=== PATIENT | female | born 1965 | race Caucasian/White ===

== ENCOUNTER 2016-10-28 08:20 | Emergency (ER) | payer BC ==
[2016-10-28 08:32] VITALS: BP 148/79
--- NOTE | 2016-10-28 08:50 | UC ---
Lower Extremity/Ankle HPI - HPI Summary HPI Summary: 51 y/o female presents to the urgent care c/o RT foot pain with swelling x 1 week. Pt doesn't recall any injury. She has been taking on and off ibuprofen, elevating the foot at night and soaking it on Epson salt w/o any relieve of symptoms. PT states pain is 6/10 w/ movement or walking, better at rest. Localized at the 1st toe. Pt denies fever, SOB, chest pain, MATHEWS, N/V/D. Pt has not other complains. - History of Current Complaint Chief Complaint: UCLowerExtremity Stated Complaint: FOOT INJURY Time Seen by Provider: 10/28/16 08:32 Hx Last Menstrual Period: 2 wks ago - Allergies/Home Medications Allergies/Adverse Reactions: Allergies Allergy/AdvReac Type Severity Reaction Status Date / Time Environmental Allergies Allergy Eyes Uncoded 10/28/16 08:28 Itchy/Swollen/Red/Watery PMH/Surg Hx/FS Hx/Imm Hx Previously Healthy: Yes - Surgical History Surgical History: Yes Surgery Procedure, Year, and Place: hysterectomy 2016 - Family History Known Family History: Positive: None Family History: NON CONTRIBUTORY - Social History Occupation: Employed Full-time Lives: With Family Alcohol Use: Weekly Alcohol Amount: 2 times per week Substance Use Type: None Smoking Status (MU): Light Every Day Tobacco Smoker Type: Cigarettes Amount Used/How Often: few sig/day, trying to quit Length of Time of Smoking/Using Tobacco: 30 years Review of Systems Constitutional: Negative Skin: Negative Eyes: Negative ENT: Negative Respiratory: Negative Cardiovascular: Negative Gastrointestinal: Negative Genitourinary: Negative Motor: Negative Neurovascular: Negative Musculoskeletal: Decreased ROM - RT Foot pain specially at the #1 toe Neurological: Negative Psychological: Negative All Other Systems Reviewed And Are Negative: Yes Physical Exam Triage Information Reviewed: Yes Appearance: Well-Appearing, No Pain Distress, Well-Nourished, Thin Vital Signs: Initial Vital Signs Temp 99.2 F 10/28/16 08:24 Pulse 89 10/28/16 08:24 Resp 16 10/28/16 08:24 BP 148/79 10/28/16 08:24 Pulse Ox 100 10/28/16 08:24 Vital Signs Reviewed: Yes Eye Exam: Normal Eyes: Positive: Conjunctiva Clear - PERRLA, EOMI, fundi grossly normal ENT Exam: Normal ENT: Positive: Normal ENT inspection, Hearing grossly normal, Pharynx normal, TMs normal Dental Exam: Normal Neck exam: Normal Neck: Positive: Supple, Nontender, No Lymphadenopathy Respiratory Exam: Normal Respiratory: Positive: Chest non-tender, Lungs clear, Normal breath sounds Cardiovascular Exam: Normal Cardiovascular: Positive: RRR, No Murmur, Pulses Normal, Brisk Capillary Refill Abdominal Exam: Normal Abdomen Description: Positive: Nontender, No Organomegaly, Soft. Negative: CVA Tenderness (R), CVA Tenderness (L) Bowel Sounds: Positive: Present Musculoskeletal: Positive: ROM Limited @ - RT #1 MTPJ with moderate edema, Decrease ROM due to pain. no erythema observed. Tender to palpation. Positive pulses, capillary refill and sensation intact. Neurological Exam: Normal Psychological Exam: Normal Skin Exam: Normal Lower Extremity Course/Dx - Course Course Of Treatment: 51 y/o female presents to the urgent care c/o RT foot pain with swelling x 1 week. Pt doesn't recall any injury. She has been taking on and off ibuprofen, elevating the foot at night and soaking it on Epson salt w/o any relieve of symptoms. PT states pain is 6/10 w/ movement or walking, better at rest. Localized at the 1st toe. Pt denies fever, SOB, chest pain, MATHEWS , N/V/D. HX obtained. PE abnormal findings:RT #1 MTPJ with moderate edema, Decrease ROM due to pain. no erythema observed. Tender to palpation. Positive pulses, capillary refill and sensation intact. RT Foot x-ray ordered. No Hx of gout or DM. RT foot x-ray impression: Suggestion of calcific tendinopathy involving the lateral head of the flexor hallucis brevis. Mild osteoarthritis at the First metatarsal pahalengeal joint. Pt Placed or a post -op shoe and f/ u with Ortho in 2-3 days for further evaluation and treatment. Pt Rx Ibuprofen 800mg PO and advised RICE to alleviate symptoms. Pt BP: 148/79 Pt w/o HX of HTN. Pt counceled on HTN. Advised to decrease salt intake and monitor BP and f/ u with her PCP for further evaluation and treatment. Pt understood and agreed, and left the clinic ambulating. - Differential Dx/Diagnosis Differential Diagnosis/HQI/PQRI: Contusion, Gout, Sprain, Tendonitis Provider Diagnoses: 1- Tendinopathy of first MCPJ. 2-Osteoarthritis. 3- Elevated Blood pressure w/o HX of HTN Discharge - Discharge Plan Condition: Stable Disposition: HOME Prescriptions: Ibuprofen TAB* [Motrin TAB* 800 MG] 800 mg PO Q6H #30 tab Patient Education Materials: Calcific Tendinitis (ED), Low Sodium Diet (ED) Referrals: [facility] [place] [facility]YSICIAN REFERRAL [Outside] [facility] [place]Primary Care Provider] - Theodore Esparza MD [Medical Doctor] - 2 Days Additional Instructions: PLease continue taking Ibuprofen q8-6hrs prn after meals to alleviate swelling and pain. Please f/u with the orthopedic DR Esparza in 2-3 days for further evaluation and treatment. Please decrease salt intake, monitor BP and f/u with your PCP for further evaluation and treatment on elevated blood pressure.
--- NOTE | 2016-10-28 09:07 | RAD ---
Indication: Woke up with RIGHT foot pain and swelling at the first and second metatarsals one week ago. Comparison: No relevant prior exams available on the [facility] PACS for comparison. Technique: AP, lateral, and oblique views RIGHT foot. Report: Amorphous calcification evident along the plantar aspect of the foot along the course of the lateral flexor hallucis brevis tendon suspicious for calcific tendinopathy. Minimal osteophytosis at the first metatarsal phalangeal joint. Negative for malalignment, fracture, or radiographic stigmata of stress reaction. Mild forefoot soft tissue swelling. IMPRESSION: Suggestion of calcific tendinopathy involving the lateral head of the flexor hallucis brevis. Mild osteoarthritis at the first metatarsal phalangeal joint.
== END 2016-10-28 09:30 | disposition home or self-care (01) ==
LOC: UCEAST 08:20
DX: M77.51 Other enthesopathy of right foot and ankle (principal); M19.071 Primary osteoarthritis, right ankle and foot; R03.0 Elevated blood-pressure reading, without diagnosis of hypertension; Z87.891 Personal history of nicotine dependence
CPT/HCPCS: 99213; G0463